=== PATIENT | female | born 2000 | race Caucasian/White ===

== ENCOUNTER 2022-09-16 16:21 | Emergency (ER) | payer OTHER ==
[2022-09-16 17:25] LABS: Bacteria/HPF 4+ HPF (None Seen); Bilirubin Negative (Negative); Blood, Urine Negative (Negative); Clarity Turbid (Clear); Glucose, Urine (Dipstick) Normal (Negative); Ketone, Urine Negative (Negative); Leukocyte 75 Leu/uL (Negative); Nitrite Negative (Negative); Protein, Urine (Dipstick) 20 mg/dL (Neg-Trace); RBC/HPF 0-3 HPF (0-3); Specific Gravity, Urine 1.027 (1.002-1.036); Urobilinogen Normal mg/dL (Less than 2); pH, Urine 5.5 (5.0-9.0)
== END 2022-09-16 18:31 | disposition home or self-care (01) ==
LOC: ERS 16:21
DX: O23.41 Unspecified infection of urinary tract in pregnancy, first trimester (principal); Z3A.14 14 weeks gestation of pregnancy
CPT/HCPCS: 76815; 81003; 81015; 87086